=== PATIENT | female | born 1955 ===

== ENCOUNTER 2025-07-21 06:00 | Day surgery (SDC) | payer OTHER ==
[2025-07-11 10:44] VITALS: BP 107/69
[2025-07-11 11:45] LABS: BASO % 1.0 % (0.1-1.2); EOS # 0.06 (0.04-0.54); EOS % 1.5 % (0.7-7.0); LYMPH # 1.39 (1.18-3.74); LYMPH % 33.9 % (19.3-53.1); MEAN PLATELET VOLUME 10.30 fl (9.4-12.4); MONO # 0.40 (0.24-0.82); MONO % 9.8 % (4.7-12.5); NEUT # 2.21 (1.56-6.13); NEUT % 53.8 % (34.0-71.1); RED CELL DISTRIBUTION WIDTH 14.4 % (11.6-14.4)
[2025-07-11 12:08] LABS: URINE APPEARANCE Clear; URINE BILIRRUBIN Negative (NEGATIVE); URINE BLOOD Negative; URINE COLOR Yellow; URINE GLUCOSE Negative (NEGATIVE); URINE KETONE Negative (NEGATIVE); URINE LEUKOCYTE Moderate; URINE NITRATE Negative; URINE PROTEIN Negative (NEGATIVE); URINE UROBILINOGEN 1.0 E.U./dl
[2025-07-11 12:09] LABS: URINE BACTERIA 226.7 uL (0.0-1933); URINE EPITHELIAL CELLS 14.3 uL (0.0-38.8); URINE RBC 15.1 uL (0.0-20.8); URINE WBC 2.4 uL (0.0-23.2)
[2025-07-11 12:25] LABS: URINE CAST 0.00 uL (0.0-1.40)
[2025-07-11 12:30] LABS: ALT/SGPT 17.0 U/L (12-78); AST/SGOT 16.0 U/L (15-37); BILIRUBIN TOTAL 0.88 mg/dL (0.3-1.2); BUN CREA RATIO 33.0 (7.0-25.0); CREATININE SERUM 0.57 mg/dL (0.55-1.02); GFR 104.56; GLOBULINA 3.0 G/DL (2.4-3.5); GLUCOSE FASTING 87.0 mg/dL (65-100); OSMOLALITY SERUM 288.0 MOSM/KG (275-295)
[~2025-07-21] VITALS: Ht 165.1 cm; Wt 78.0 kg
[~2025-07-21 06:00] MED LIST: SYNTHROID125 MCG PO
[2025-07-21] MEDS ORDERED: POVIDONE-IODINE 118 ML BOTT TOP ONE (07:45)
[2025-07-21] MEDS ORDERED: MORPHINE SULFATE 2 MG/ML SYRINGE IV ONE (08:15)
[2025-07-21] MEDS ORDERED: ONDANSETRON HCL 2 MG/ML VIAL IV ONE (08:15)
[2025-07-21 16:29] VITALS: BP 96/58; O2SAT 100
== END 2025-07-21 12:05 | disposition home or self-care (01) ==
LOC: CIR.AMB 06:00
PROVIDERS: ATTEND Obstetrics & Gynecology
DX: N95.0 Postmenopausal bleeding (principal)